=== PATIENT | female | born 1990 | race Caucasian/White ===

== ENCOUNTER 2016-08-28 04:08 | Emergency (ER) | payer BC ==
[~2016-08-28] VITALS: Ht 170.2 cm; Wt 138.8 kg
[~2016-08-28 04:08] MED LIST: ENDOCET 5-3251 EACH PO; FERROUS SULFAT325 MG PO; HYDROCODON-ACE1 EAC8 PO; IBUPROFEN800 MG PO; MOTRIN800 MG PO; NOHOMEMEDS; NORCO 5/3251 TABLET PO; PHENTERMINE HCL30 MG PO; PRENATAL COMPL1 EACH PO; ZOFRAN ODT8 MG PO
[2016-08-28 05:06] LABS: HEMATOCRIT 40.7 % (36.0-46.0); MCH 26.1 PG (29.0-34.0); MCHC 31.7 G/DL (30.0-36.0); MCV 82.2 FL (83-99); MEAN PLAT.VOLUME 10.1 uM^3 (9.5-12.4); PLATELET COUNT 325 K/uL (156-360); RBC DIS.WIDTH-SD 44.9 % (39-53); RED BLOOD COUNT 4.95 M/uL (3.80-5.20); WHITE BLOOD COUNT 8.1 K/uL (4.1-10.2)
[2016-08-28 05:17] LABS: CHLORIDE 108 mEq/L (99-109)
[2016-08-28 05:18] LABS: POTASSIUM 4.2 mEq/L (3.7-5.4); SODIUM 138 mEq/L (136-147)
[2016-08-28 05:19] LABS: GLUCOSE 112 mg/dL (70-99)
[2016-08-28 05:21] LABS: ANION GAP 7 MEQ/L (2-14)
[2016-08-28 05:23] LABS: GFR ESTIMATE (CALCULATED) > 59 mL/min/
[2016-08-28 05:24] LABS: UREA NITROGEN (BUN) 13 mg/dL (9-23)
[2016-08-28 05:27] LABS: TROP-I INTERPRETATION NEGATIVE; TROPONIN-I < 0.01 ng/mL (0.0-0.30)
[2016-08-28 06:19] LABS: TOTAL BILIRUBIN 0.3 mg/dL (0.0-1.0)
[2016-08-28 06:20] LABS: ALKALINE PHOSPHATASE 78 IU/L (3-129)
[2016-08-28 06:22] LABS: D-DIMER ELISA 0.34 mg/L FEU (< 0.57)
[2016-08-28 06:23] LABS: DIRECT BILIRUBIN 0.1 mg/dL (0.0-0.3)
[2016-08-28 06:24] LABS: LIPASE 8 U/L (1.0-51.0)
[2016-08-28] MEDS ORDERED: ZOFRAN8 MG PO (07:49)
[2016-08-28] MEDS ORDERED: NORCO 5/3251 TABLET PO (07:49)
[2016-08-28 08:17] VITALS: BP 134/91
== END 2016-08-28 08:19 | disposition home or self-care (01) ==
LOC: EME 04:08
DX: K80.20 Calculus of gallbladder without cholecystitis without obstruction (principal); R10.13 Epigastric pain; F17.200 Nicotine dependence, unspecified, uncomplicated
CPT/HCPCS: 71020; 76705; 80048; 80076; 83690; 84484; 85027; 85379; 93005; 94640; 99281; 99284; J1885